=== PATIENT | male | born 1980 | race Caucasian/White ===

== ENCOUNTER 2017-03-25 08:01 | Inpatient (IN) | payer BC ==
[2017-03-22 14:46] VITALS: BMI 22.6
--- NOTE | 2017-03-22 17:10 | PREOPHP ---
DATE OF ADMISSION: 03/25/2017 CODE # 2636 PREOPERATIVE MEDICAL CONSULTATION Scheduled Date Of Surgery: 03/25/2017, by Dr. Macho Bella. Dear Dr. Bella: Thank you very much for allowing me to participate in the care of Mr. Hughes. HISTORY OF PRESENT ILLNESS: He is a 36-year-old right-handed gentleman who is being brought in [facility] for an L5 microdiskectomy. He has a history of lumbar disk disease and has failed all conser vative attempts at treatment. At this time, he reports no specific complaints. PAST MEDICAL HISTORY 1. Lumbar disk disease. 2. Usual childhood diseases. 3. History of varicella. 4. Status post removal of wisdom teeth. ALLERGIES: HE IS ALLERGIC TO PENICILLIN. MEDICATIONS: His only medication is Eugene p.r.n. HABITS: He is a nonsmoker, he drinks 2 cocktails a day, one cup of caffeine per day, no recreationa l drugs. SOCIAL HISTORY: He has 3-1/2 years of college, without experience. He works for [employer]. He is and lives with his spouse and 2 children. FAMILY HISTORY: Negative for coronary artery disease, negative for diabetes, negative for hypertens ion, positive for stroke, negative for anesthesia reactions. REVIEW OF SYSTEMS: As follows HEAD AND EYES: Fully negative. ENT: Negative. RESPIRATORY: Negative. CARDIAC: Negative. GASTROINTESTINAL: Negative. HEMATOLOGIC: Negative. UROLOGIC: Negative. MUSCULOSKELETAL: Negative. NEUROLOGIC: Negative, with the exception of the lumbar disk disease with sciatica. GENERAL: No weight change, no fever, chills, or sweats. No changing skin lesions. PHYSICAL EXAMINATION: VITAL SIGNS: At the time of physical exam, he has a height of 6 feet 2 inches, weight 186, blood pr essure 140/80, pulse 64, temperature is 98 degrees. HEENT: NC/AT; PERRL, EOMI, anicteric, fundi are without note; tympanic membranes are without note; oropharynx demonstrates no lesions. NECK: Supple. There is a midline trachea. There is no thyromegaly; pulses are 2+ without bruits. RESPIRATORY: Clear to auscultation and percussion. CARDIAC: Demonstrates no JVD, regular rate and rhythm without rubs, murmurs, or gallops. ABDOMEN: Soft, nontender, active bowel sounds, no hepatosplenomegaly, no CVA tenderness, no hernias , and no bruits. EXTREMITIES: Demonstrate no clubbing, cyanosis, or edema. NEUROLOGIC: Notable for a radicular pattern in the L5 distribution, otherwise negative. LABORATORY DATA: Sodium 142, potassium 4.4, chloride 98, bicarbonate 29, BUN 13, creatinine 0.8, ra ndom blood sugar 99. White count 6.0, hemoglobin 15, hematocrit 44.3, platelet count 289. Pro miri e 11.5 with an INR of 0.98, PTT 29 seconds. Urinalysis 1.010, pH of 7, dipsticks negative. EKG is sinus rhythm at 58 with intervals 0.10, 0.11, and 0.39 and axis of 90 degrees, normal morphology. C hest x-ray demonstrated normal cardiac size and silhouette. Normal bones and soft tissue. Lungs ac tually were somewhat hyperinflated with increased anterior air spaces and some relatively modest fla ttening of the domes of the diaphragms. ASSESSMENT AND PLAN: Preoperative medical consultation, prior to elective L5 microdiskectomy. At t his time, Mr. Hughes's an acceptable surgical candidate and I concur with your plan to proceed with surgery. He is at average surgical risk, as compared to his age-matched peers. While he does have the somewhat interesting chest x-ray, there is no history to suggest asthma in him. As such, he sh ould proceed using standard and routine anesthesia precautions. Respectfully yours: Dictated By: KAM WALTERS MD, JR/RILEY Conf#: [id number] DID#: [id number]
[2017-03-25] VITALS (29 sets, daily range): BP systolic 114–160; BP diastolic 56–88; PULSE 52–81; RESP 13–26; Ht 188 cm; Wt 82.0 kg
[~2017-03-25] VITALS: Ht 188 cm; Wt 82.0 kg
[~2017-03-25 08:01] MED LIST: FENTAnyl 50 MCG/ML VIAL ONE; GLYCOPYRROLATE 0.4 MG INJ ONE; LIDOCAINE 2% (SDV) 5 ML INJ ONE; MIDAZOLAM 1 MG/ML 2 ML INJ ONE; NEOSTIGMINE 3 MG/3 ML SYRINGE ONE; PROPOFOL 20 ML ONE; ROCURONIUM 50 MG INJ ONE
[2017-03-25] MEDS ORDERED: CEFAZOLIN 2 GM/50 ML (PMX) 50 ML IVPB ONE (08:30)
--- NOTE | 2017-03-25 09:20 | HPN ---
Date/Time of Note Date/Time of Note DATE: 03/25/17 TIME: 09:20 Interval H&P Admission Note Pt. seen H&P reviewed: No system changes DIEUDONNE JAFFE MD March 25, 2017 09:20
[2017-03-25] MEDS ORDERED: HYDR-906 PO (09:33)
[2017-03-25] MEDS ORDERED: MELO7.5O PO (09:33)
[2017-03-25] MEDS ORDERED: ONDANSETRON 4 MG INJ ONE (09:42)
[2017-03-25] MEDS ORDERED: DEXAMETHASONE 4 MG/ML 1 ML INJ ONE (09:42)
[2017-03-25] MEDS ORDERED: BUPIVACAINE 0.25% (MPF) 10 ML 10 ML VIAL ONE (10:18)
[2017-03-25] MEDS ORDERED: POLYMYXIN/BACITRACIN 1L IRRIG ONE (10:18)
[2017-03-25] MEDS ORDERED: THROMBIN 5000 UNIT VIAL ONE (10:18)
[2017-03-25] MEDS ORDERED: GELATIN SIZE 100 SPONGE ONE ×2 (10:19→11:10)
[2017-03-25] MEDS ORDERED: HYDROmorphONE (0.2 MG/ML) 10ML SYG IV PRN ×2 (11:00)
[2017-03-25] MEDS ORDERED: MIDAZOLAM 1 MG/ML 2 ML INJ IV PRN (11:00)
[2017-03-25] MEDS ORDERED: EPHEDrine SULFATE 50 MG/5 ML SYG IV PRN (11:00)
[2017-03-25] MEDS ORDERED: FENTAnyl 50 MCG/ML VIAL IV PRN (11:00)
[2017-03-25] MEDS ORDERED: hydrALAzine 20 MG INJ IV PRN (11:00)
[2017-03-25] MEDS ORDERED: OXYCODONE/ACETAMINOPHEN (5/325) TAB PO PRN ×2 (11:00)
[2017-03-25] MEDS ORDERED: morphine (1 MG/ML) 10ML SYRINGE IV PRN ×2 (11:00)
[2017-03-25] MEDS ORDERED: ONDANSETRON 4 MG INJ IV PRN ×2 (11:00→12:00)
[2017-03-25] MEDS ORDERED: LABETALOL HCL 20MG INJ IV PRN (11:00)
[2017-03-25] MEDS ORDERED: MEPERIDINE 25 MG INJ IV PRN (11:00)
[2017-03-25] MEDS ORDERED: ATROPINE 1 MG/10 ML SYRINGE IV PRN (11:00)
[2017-03-25] MEDS ORDERED: DIPHENHYDRAMINE 50 MG INJ IV PRN (11:00)
[2017-03-25] MEDS: FENTAnyl 50 MCG/ML VIAL IV PRN ×2 (11:55→12:18)
[2017-03-25] MEDS: HYDROmorphONE (0.2 MG/ML) 10ML SYG IV PRN ×2 (11:56→12:19)
--- NOTE | 2017-03-25 11:58 | OPR ---
Date/Time of Note Date/Time of Note DATE: 03/25/17 TIME: 11:54 Operative Report Preoperative Diagnosis Herniated disc L4-5 centrally Herniated disc L5-S1 on the left with extruded disc fragments Postoperative Diagnosis Same Operation Performed Left hemilaminotomy L4 Left hemilaminotomy L5 Microdiscectomy L4-5 on the left Microdiscectomy L5-S1 on the left Cosmetic wound closure (5 cm) Lateral localizing lumbar radiographs (2) Intraoperative nerve monitoring (2 hours) Surgeon: DIEUDONNE JAFFE MD bindery library technical assistant: INOCENCIO DELGADO Anesthesia: general Anesthesiologist: CESAR VILLALOBOS MD Estimated Blood Loss: 0 - 10 ml's Specimens Disc material L4-5 and L5-S1 Tubes/Drains 2 medium Hemovac drains employed Complications: None Pt Condition Post Procedure: stable Disposition: PACU Operative\Procedure Findings At surgery, a small to moderate central herniation at L4-5 and a large extruded herniation at L5-S1 on the left was identified DIEUDONNE JAFFE MD March 25, 2017 11:58
[2017-03-25] MEDS ORDERED: HYDROCODONE/APAP (5/325) TAB PO PRN ×2 (12:00)
[2017-03-25] MEDS ORDERED: DIAZEPAM 5 MG TAB PO PRN (12:00)
[2017-03-25] MEDS ORDERED: TRIMETHOBENZAMIDE 100 MG/ML VIAL IM PRN (12:00)
[2017-03-25] MEDS ORDERED: BETHANECHOL 25 MG TAB PO PRN (12:00)
[2017-03-25] MEDS ORDERED: NALOXONE (0.4 MG/ML) INJ IV PRN (12:00)
[2017-03-25] MEDS ORDERED: NACL 0.9% 3 ML SYG IV SCH (12:00)
[2017-03-25] MEDS ORDERED: DIPHENHYDRAMINE 50 MG CAP PO PRN (12:00)
[2017-03-25] MEDS ORDERED: ACETAMINOPHEN 325 MG TAB PO PRN (12:00)
[2017-03-25] MEDS ORDERED: AL HYDROX/MG HYDROX/SIMETH 30 ML CUP PO PRN (12:00)
[2017-03-25] MEDS ORDERED: HYDROmorphONE 0.2 MG/ML PCA IV SCH (12:00)
[2017-03-25] MEDS ORDERED: CEPASTAT LOZENGE MT PRN (12:00)
[2017-03-25] MEDS ORDERED: DIAZEPAM 5 MG/ML SYG IM PRN (12:00)
[2017-03-25] MEDS ORDERED: PROCHLORPERAZINE 10 MG TAB PO PRN (12:00)
[2017-03-25] MEDS ORDERED: ZOLPIDEM 5 MG TAB PO PRN (12:00)
[2017-03-25] MEDS: morphine (1 MG/ML) 10ML SYRINGE IV PRN ×2 (12:04→12:20)
[2017-03-25] MEDS ORDERED: HYDROmorphONE 0.2 MG/ML PCA ONE (12:07)
--- NOTE | 2017-03-25 12:16 | RADRPT ---
PROCEDURE: XR Lumbar Spine one view. CLINICAL INDICATION: Low back pain. Intraoperative. TECHNIQUE: Prone portable cross-table lateral. COMPARISON: Prior study done earlier the same day. FINDINGS: For the purposes of this report, the last apparent true disc level is considered to be L5-S1. Based on this, the posterior surgical instrument is present overlying the L5-S1 level. IMPRESSION: 1. Intraoperative imaging as described above. RPTAT: QQ .Sarthak Monge MD, MD Date Time Electronically viewed and signed by .Sarthak Monge MD, on 03/25/2017 12:16 .R/
--- NOTE | 2017-03-25 12:16 | RADRPT ---
PROCEDURE: XR Lumbar Spine one view. CLINICAL INDICATION: Low back pain. Intraoperative. TECHNIQUE: Prone portable cross-table lateral. COMPARISON: No prior studies are available for comparison. FINDINGS: For the purposes of this report, the last apparent true disc level is considered to be L5-S1. Based on this, the posterior needle markers are present overlying the lower L4 spinous process and lower L5 spinous process. IMPRESSION: 1. Intraoperative imaging as described above. RPTAT: QQ .Sarthak Monge MD, Date Time Electronically viewed and signed by .Sarthak Monge MD, on 03/25/2017 12:15 .R/
[2017-03-25] MEDS ORDERED: CEFAZOLIN 1 GM/50 ML (PMX) 50 ML IVPB SCH (14:00)
[2017-03-25] MEDS: DEXTROSE 5%-0.45% NACL 1,000 ML IV SCH ×3 (14:17→23:01)
--- NOTE | 2017-03-25 14:36 | OPR ---
DATE OF OPERATION: 03/25/2017 PREOPERATIVE DIAGNOSES: 1. Herniated disk, L4-L5 centrally (small). 2. Herniated disk, L5-S1 on the left (large). POSTOPERATIVE DIAGNOSES: 1. Herniated disk, L4-L5 centrally (small). 2. Herniated disk, L5-S1 on the left (large). OPERATIVE PROCEDURES: 1. Left hemilaminotomy at L4. 2. Left hemilaminotomy at L5. 3. Microdiskectomy at L4-5 on the left. 4. Microdiskectomy at L5-S1 on the left. 5. Medial facetectomy and foraminotomy at L5-S1 and L4-L5 on the left. 6. Cosmetic wound closure (6 cm). 7. Lateral localized lumbar radiographs (2). 8. Intraoperative nerve monitoring (2 hours). SURGEON: Macho Bella MD WEBBING SEAMER POUND NET: EUGENE Talavera ANESTHESIA: General endotracheal. ANESTHESIOLOGIST: Dr. García ESTIMATED BLOOD LOSS: 10 mL, none replaced. DRAINS: Two medium Hemovac drains employed. COMPLICATIONS: None. PERTINENT HISTORY AND PHYSICAL: This is a 36-year-old male with severe back and left leg pain which has been unrelieved by conservative management. He has undergone a number of diagnostic studies including an MRI of the lumbar spine, which demonstrates a very large extruded disk herniation at L5-S1 on the left and a small central herniation at L4-L5. Treatment options were discussed with the patient who elected to proceed with surgery. OPERATIVE FINDINGS AT SURGERY: A small central herniation at L4-L5 was confirmed as was a large extruded disk herniation at L5-S1 on the left. OPERATIVE PROCEDURE: With the patient in the supine position after satisfactory induction of general endotracheal anesthesia by Dr. García, the patient was turned to the prone kneeling position onto the [place] frame. All pressure points were carefully padded. The back was prepped and draped in usual sterile fashion. Athrombic pumps were applied to the legs below the knees to prevent venous stasis during and after the procedure. An indwelling [place] catheter was also placed preoperatively to facilitate bladder drainage during and after the procedure. Two spinal needles were placed next to what was felt to be the L4 and L5 spinous processes, lateral roentgenogram was taken which confirmed anatomic localization. A 6 cm incision then carried out midline over the spinous process of L5 and L4 through skin and subcutaneous tissue to the deep fascia. Superficial retractors were placed and hemostasis secured with electrocautery. Throughout the procedure, copious amounts of antibacterial irrigating solution were used to periodically irrigate the wound. The fascia was incised in midline with a hot knife and unilateral subperiosteal dissection carried out at L4 and L5. Deep retractors were placed and deep hemostasis secured with electrocautery. A second intraoperative radiograph was taken with a Bernadine retractor at the L5-S1 interspace, and this was confirmed on second x-ray. A left hemilaminotomy at L5 was then carried out using Leksell rongeur, Kerrison punches, and curettes. Ligamentum flavum was incised with sharp dissection. The dissection was then carried proximally to the L4 lamina where the left hemilaminotomy at L4 was carried out using Leksell rongeur, Kerrison punches, and curettes. Ligamentum flavum was incised with sharp dissection at this level as well. The operating microscope was then moved into place and medial facetectomy with foraminotomy was accomplished at L4 -L5 and L5-S1 on the left using a small hand osteotome, mallet, Kerrison punches , and curettes. With this having been accomplished, the L5 root was mobilized medially and protected with D'Errico nerve root retractor. The L5 root was mobilized medially and protected with a D'Errico nerve retractor, exposing the herniation of the L4-L5 disk. A 15 blade knife then used to cut a rectangular window in the annulus and posterior longitudinal ligament, and multiple degenerative disk fragments were harvested with pituitary rongeurs and sent to laboratory for pathologic study. Additional fragments were harvested using Solomon curettes. A thorough search of the floor of the canal was made with an arthroscopic probe. No additional fragments were encountered. The epidural hemostasis was secured with bipolar electrocautery on a low setting. The anesthesiologist was asked to perform a Valsalva maneuver at 40 mmHg and no spinal fluid leak was noted. Attention then turned to the L5-S1 level where the S1 root was mobilized medially and protected with D'Errico nerve retractor using microdissection technique. A 15 blade knife was used to cut a rectangular window in the annulus and posterior longitudinal ligament at L5-S1 and multiple degenerative disk fragments were harvested with pituitary rongeurs and sent to laboratory for pathologic study. Huge extruded disk herniation was also excised and sent to laboratory along with the remainder of the specimen. The epidural hemostasis was secured with bipolar electrocautery on a low setting. The anesthesiologist was then asked to perform a second Valsalva maneuver at 40 mmHg, and no spinal fluid leak was noted. The wound was then closed in layers over 2 medium Hemovac drains, one below the fascia and one above the fascia using #1 Vicryl [id number] approximating sutures in deep paralumbar musculature and deep fascia of back, 2-0 Vicryl subcutaneous approximating sutures in the subQ tissue, and a 4-0 Vicryl subcuticular cosmetic closing suture on the skin. Dermabond and sterile compressive dressings were applied. The patient having tolerated procedure well was then turned to the supine position onto his bed and extubated by Dr. García. He was transported to the recovery room in satisfactory condition. At the conclusion of the procedure, sponge, instrument, and needle counts were all correct. NEED FOR TOWEL ROLLING MACHINE OPERATOR: During this spinal surgical procedure, my senior assistant manager was used to retract and protect the spinal nerves and dural sac. My senior assistant manager also employed the suction catheters to evacuate blood from the surgical field to improve visualization of the neural structures. The senior assistant manager was medically necessary to facilitate the completion of the surgery in a safe and expeditious manner. State of [place] regulations, as well as hospital bylaws, preclude the use of non-licensed health care personnel such as operating room technicians, to perform these functions. Throughout the procedure, neuromonitoring was carried out by [employer] including EMG, SSEP and MEP monitoring of the L3, L4 , L5, and S1 nerve roots bilaterally. These were interpreted by neurologist employed by [employer]. Dictated By: MACHO BELLA MD TM/NTS Conf#: [id number] DID#: [id number] CC: KAM WALTERS MD;*EndCC* MTDD
[2017-03-25] MEDS: CEFAZOLIN 1 GM/50 ML (PMX) 50 ML IVPB SCH ×2 (17:11→23:01)
[2017-03-25] MEDS: RANITIDINE 150 MG TAB PO SCH (20:15)
[2017-03-26] MEDS: CEFAZOLIN 1 GM/50 ML (PMX) 50 ML IVPB SCH ×2 (05:24→12:39)
[2017-03-26 05:30] LABS: HEMATOCRIT 32.6 % (42.0-52.0); HEMOGLOBIN 11.4 g/dl (14.0-18.0)
[2017-03-26 05:36] VITALS: BP 117/56; PULSE 58; RESP 18
[2017-03-26 05:40] LABS: CALCIUM 8.8 mg/dl (8.4-10.2); CREATININE 0.8 mg/dl (0.61-1.24)
--- NOTE | 2017-03-26 07:20 | PN ---
Date/Time of Note Date/Time of Note DATE: 03/26/17 TIME: 07:19 Assessment/Plan Lines/Catheters IV Catheter Type (from Nrs): Peripheral IV Magaña in Place (from Nrs): Yes Subjective 24 Hr Interval Summary Patient is postop day #1 from lumbar discectomy. He is doing well. He has been up ambulating with physical therapy. Neurovascular structures are intact. Vital signs are stable and a.m. labs are within normal. Hemovac drain overnight was 10 cc and this was removed. Incision is healing well. He may be cleared for discharge later today pending physical therapy. Discharge instructions reviewed with patient. Exam/Review of Systems Vital Signs Vitals Vital Signs Date Time Temp Pulse Resp B/P Pulse Ox O2 Delivery O2 Flow Rate FiO2 03/26/17 05:36 98.4 58 18 117/56 98 Room Air 03/25/17 14:00 2.0 Intake and Output 03/25/17 03/25/17 03/26/17 15:00 23:00 07:00 Intake Total 1400 ml 1730 ml 1800 ml Output Total 165 ml 1825 ml 3510 ml Balance 1235 ml -95 ml -1710 ml Results Result Diagram: 03/26/17 0447 03/26/17 0447 INOCENCIO DELGADO March 26, 2017 07:20
[2017-03-26 08:00] VITALS: BP 117/56; RESP 20
[2017-03-26] MEDS ORDERED: BETHANECHOL 25 MG TAB PO PRN (08:00)
[2017-03-26] MEDS: RANITIDINE 150 MG TAB PO SCH (08:34)
[2017-03-26] MEDS: FERROUS SULFATE (EC) 325 MG TAB PO SCH ×2 (08:34→12:39)
[2017-03-26] MEDS ORDERED: ASCORBIC ACID 500 MG TAB PO SCH (09:00)
[2017-03-26] MEDS ORDERED: DOCUSATE SODIUM 100 MG CAP PO SCH (09:00)
[2017-03-26 13:02] LABS: ADD UMIC NO; URINE BILIRUBIN (Dip) NEGATIVE (NEGATIVE); URINE BLOOD (Dip) NEGATIVE (NEGATIVE); URINE COLOR LT. YELLOW (YELLOW); URINE GLUCOSE (Dip) NEGATIVE (NEGATIVE); URINE KETONES (Dip) NEGATIVE (NEGATIVE); URINE LEUKOCYTE ESTERASE (Dip) NEGATIVE (NEGATIVE); URINE NITRITE (Dip) NEGATIVE (NEGATIVE); URINE TOTAL PROTEIN (Dip) NEGATIVE (NEGATIVE); URINE UROBILINOGEN (Dip) 0.2 E.U./dL (0.1-1.0)
--- NOTE | 2017-03-26 13:30 | PN ---
Date/Time of Note Date/Time of Note DATE: 03/26/17 TIME: 13:29 Assessment/Plan VTE Prophylaxis VTE Prophylaxis Intervention: anti-embolic stocking Lines/Catheters IV Catheter Type (from Nrsg): Peripheral IV Urinary Cath still in place: Yes Reason Cath still needed: other (indicate) (Discontinued) Assessment/Plan Problems: (1) Status post lumbar microdiscectomy Status: Acute Comment: Patient has gone through surgical procedure without any evidence of untoward complications. Is improved to the point where he is stable for discharge home with home assistance. At this time I medically concur with his discharge Subjective 24 Hr Interval Summary Free Text/Dictation Patient reports incisional pain from where the surgery was done but his leg symptoms have resolved. Constitutional: no complaints Respiratory: no complaints Cardiovascular: no complaints Gastrointestinal: no complaints Genitourinary: no complaints Musculoskeletal: back pain Neurologic: no complaints Exam/Review of Systems Vital Signs Vitals Vital Signs Date Time Temp Pulse Resp B/P Pulse Ox O2 Delivery O2 Flow Rate FiO2 03/26/17 09:00 18 03/26/17 08:00 98.8 54 117/56 97 03/26/17 05:36 Room Air 03/25/17 14:00 2.0 Intake and Output 03/25/17 03/25/17 03/26/17 15:00 23:00 07:00 Intake Total 1400 ml 1730 ml 1800 ml Output Total 165 ml 1825 ml 3510 ml Balance 1235 ml -95 ml -1710 ml Exam Constitutional: alert, oriented Neck: non-tender, supple Respiratory: clear to auscultation, normal air movement Cardiovascular: nl pulses, regular rate and rhythm Results Result Diagram: 03/26/17 0447 03/26/17 0447 Results 24 hrs Laboratory Tests Test 03/26/17 04:47 03/26/17 09:05 Hemoglobin 11.4 L Hematocrit 32.6 L Sodium Level 133 L Potassium Level 4.0 Chloride Level 102 Carbon Dioxide Level 26 Anion Gap 9 Blood Urea Nitrogen 9 Creatinine 0.80 Glucose Level 129 Calcium Level 8.8 Urine Color LT. YELLOW Urine Clarity CLEAR Urine pH 6.5 Urine Specific [place] <=1.005 L Urine Ketones NEGATIVE Urine Nitrite NEGATIVE Urine Bilirubin NEGATIVE Urine Urobilinogen 0.2 E.U./dL Urine Leukocyte Esterase NEGATIVE Urine Hemoglobin NEGATIVE Urine Glucose NEGATIVE Urine Total Protein NEGATIVE Medications Medications Current Medications Dextrose/Sodium Chloride (D5-1/2ns) 1,000 ml @ 100 mls/hr Q10H IV Last administered on 03/25/17 23:01; Admin Dose 100 MLS/HR; Start 03/25/17 at 11:51 Acetaminophen/ Hydrocodone Bitart ([place] (5/325)) 1 tab Q4H PRN PO PAIN LEVEL 1 -5; Start 03/25/17 at 12:00 Acetaminophen/ Hydrocodone Bitart ([place] (5/325)) 2 tab Q4H PRN PO PAIN LEVEL 6 -10; Start 03/25/17 at 12:00 Zolpidem Tartrate (Ambien) 5 mg HS PRN PO INSOMNIA; Start 03/25/17 at 12:00 Prochlorperazine (Compazine) 10 mg Q4H PRN PO NAUSEA AND/OR VOMITING; Start 03/25/17 at 12:00 Trimethobenzamide HCl (Tigan) 200 mg Q4H PRN IM NAUSEA AND/OR VOMITING; Start 03/25/17 at 12:00 Ondansetron HCl (Zofran Inj) 4 mg Q6H PRN IV NAUSEA AND/OR VOMITING; Start 03/25 at 12:00 Al Hydrox/Mg Hydrox/Simethicone (Mag-Al Plus) 15 ml Q4H PRN PO CONSTIPATION; Start 03/25/17 at 12:00 Docusate Sodium (Colace) 100 mg BID PO ; Start 03/26/17 at 09:00 Acetaminophen (Tylenol Tab) 650 mg Q4H PRN PO TEMP GREATER THAN 101F OR M[place]ON; Start 03/25/17 at 12:00 Ascorbic Acid (Vitamin C) 1,000 mg BID PO Last administered on 03/26/17 08:34; Admin Dose 1,000 MG; Start 03/26/17 at 09:00 Ferrous Sulfate (Ferrous Sulfate (Ec)) 325 mg TID PO Last administered on 12:39; Admin Dose 325 MG; Start 03/26/17 at 09:00 Ranitidine HCl (Zantac) 150 mg BID PO Last administered on 03/26/17 08:34; Admin Dose 150 MG; Start 03/25/17 at 21:00 Diazepam (Valium) 5 mg Q4H PRN PO MUSCLE SPASMS; Start 03/25/17 at 12:00 Diazepam (Valium) 5 mg Q4H PRN IM MUSCLE SPASMS; Start 03/25/17 at 12:00 Phenol (Cepastat Lozenge) 1 lozenge PRN PRN MT SORE THROAT; Start 03/25/17 at 12 :00 Diphenhydramine HCl (Benadryl) 50 mg Q6H PRN PO PRURITUS; Start 03/25/17 at 12: 00 Hydromorphone HCl (Dilaudid [employer]GR[employer] EQUIPMENT TEST ENGINEER) Q4PCA IV Last administered on 03/25/17 12:29 ; Admin Dose 6 MG; Start 03/25/17 at 12:00 Naloxone HCl (Narcan) 0.2 mg Q2M PRN IV RR 8 BREATHS/MIN OR LESS; Start at 12:00 Bethanechol Chloride (Urecholine) 25 mg PRN PRN PO UNABLE TO VOID Last administered on 03/26/17 09:21; Admin Dose 25 MG; Start 03/26/17 at 08:00 KAM WALTERS MD March 26, 2017 13:30
--- NOTE | 2017-03-26 13:32 | PDOCDIS ---
Discharge Instructions DIAGNOSIS Discharge Diagnosis: Lumbar disc disease with sciatica status post microdiscectomy CONDITION Patient Condition: Good HOME CARE INSTRUCTIONS: Diet Instructions: RegularSpecial Diet: new admit ACTIVITY: Activity Restrictions: Slowly Increase Activity Do not operate Machinery Do not operate Power Tool Avoid Heavy Housework FOLLOW UP/APPOINTMENTS Appointments Follow-up with Dr. Bella in 1 week KAM WALTERS MD March 26, 2017 13:32
--- NOTE | 2017-03-26 13:35 | DS ---
Date/Time of Note Date/Time of Note DATE: 03/26/17 TIME: 13:33 Discharge Summary Admission/Discharge Info Admit Date/Time March 25, 2017 at 08:01 Discharge Date/Time 03/26/2017 Final Diagnosis Lumbar disc disease with radicular sciatica Patient Condition: Good Consults Internal medicine Procedures Operation Performed Left hemilaminotomy L4 Left hemilaminotomy L5 Microdiscectomy L4-5 on the left Microdiscectomy L5-S1 on the left Cosmetic wound closure (5 cm) Lateral localizing lumbar radiographs (2) Intraoperative nerve monitoring (2 hours) Surgeon: DIEUDONNE JAFFE MD project administrative assistant: INOCENCIO DELGADO Anesthesia: general Anesthesiologist: CESAR VILLALOBOS MD Estimated Blood Loss: 0 - 10 ml's Hx of Present Illness He is a 36-year-old right-handed gentleman who is being brought in electively for an L5 microdiskectomy. He has a history of lumbar disk disease and has failed all conservative attempts at treatment. At this time, he reports no specific complaints. PAST MEDICAL HISTORY 1. Lumbar disk disease. 2. Usual childhood diseases. 3. History of varicella. 4. Status post removal of wisdom teeth. Hospital Course [facility] 36-year-old male brought in for L4-5 sciatica. He underwent the above labeled surgery without complications. He tolerated the procedure and has done well. His leg symptoms have actually resolved. While he does have some postoperative pain at the surgical site he has been cleared by physical therapy to return home and will be seeing Dr. Mcclain in follow-up will start on outpatient physical therapy regimen. He already has all of his medications for home usage previously given from Dr. Adames's office. At this time he is stable for discharge she is improved as compared to the time of admission he has no known communicable diseases his rehabilitation potential is good he is not hazard to himself or others and is competent for medical decision Home Meds Reported Medications Hydrocodone/Acetaminophen ([place] 5-325 Tablet) 1 Each Tablet, 1 EACH PO, TAB 03/25/17 Meloxicam* (Meloxicam*) 7.5 Mg/5 Ml Oral.susp, 15 MG PO DAILY, #300 ML 03/25/17 Pending Labs Laboratory Tests Test 03/26/17 04:47 03/26/17 09:05 Hemoglobin 11.4g/dl (14.0-18.0) Hematocrit 32.6% (42.0-52.0) Sodium Level 133mmol/L (135-144) Potassium Level 4.0mmol/L (3.5-5.1) Chloride Level 102mmol/L (97-110) Carbon Dioxide Level 26mmol/L (21-31) Anion Gap 9 (8-16) Blood Urea Nitrogen 9mg/dl (7-20) Creatinine 0.80mg/dl (0.61-1.24) Glucose Level 129mg/dl (70-220) Calcium Level 8.8mg/dl (8.4-10.2) Urine Color LT. YELLOW (YELLOW) Urine Clarity CLEAR (CLEAR) Urine pH 6.5 (5.0-9.0) Urine Specific [place] <=1.005 (1.003-1.030) Urine Ketones NEGATIVE (NEGATIVE) Urine Nitrite NEGATIVE (NEGATIVE) Urine Bilirubin NEGATIVE (NEGATIVE) Urine Urobilinogen 0.2 E.U./dL (0.1-1.0) Urine Leukocyte Esterase NEGATIVE (NEGATIVE) Urine Hemoglobin NEGATIVE (NEGATIVE) Urine Glucose NEGATIVE% (NEGATIVE) Urine Total Protein NEGATIVE (NEGATIVE) KAM WALTERS MD March 26, 2017 13:35
== END 2017-03-26 14:00 | disposition home or self-care (01) | DRG 520 ==
LOC: REC 08:01 → MS1 13:32
PROVIDERS: ADMIT Orthopaedic Surgery; ATTEND Orthopaedic Surgery
PROC: 4A11X4G Monitoring of Peripheral Nervous Electrical Activity, Intraoperative, External Approach (ICD-10-PCS; 2017-03-25)
PROC: 0SB40ZZ Excision of Lumbosacral Disc, Open Approach (ICD-10-PCS; principal; 2017-03-25 10:30)
DX: M51.27 Other intervertebral disc displacement, lumbosacral region (principal)
CPT/HCPCS: 72020; 80048; 81003; 85014; 85018; 86850; 86900; 86901; 86920; 87086; 97116; 97162; 97530; J0690; J1100; J1170; J2250; J2270; J2405; J2710; J3010; J7042